=== PATIENT | female | born 1980 | race Caucasian/White ===

== ENCOUNTER → 2018-06-11 09:47 | Outpatient (CLI) | payer OTHER, SELFPAY ==
[2018-06-11 11:10] LABS: Influenza A and B by PCR Rapid Negative (Negative)
== END ==
PROVIDERS: PCP Family Medicine; Visit Provider Physician Assistant
DX: R50.9 Fever, unspecified (principal)
CPT/HCPCS: 87400

== ENCOUNTER → 2018-06-11 10:06 | Outpatient (CLI) | payer OTHER, SELFPAY ==
[2018-06-11 11:18] LABS: Monotest Negative (Negative)
== END ==
PROVIDERS: PCP Family Medicine; Visit Provider Physician Assistant
DX: R50.9 Fever, unspecified (principal)
CPT/HCPCS: 86318; 87400

== ENCOUNTER → 2018-07-10 08:46 | Outpatient (CLI) | payer OTHER, SELFPAY ==
[2018-07-10 10:03] LABS: HCG Quantitative /Beta subunit 265.58 mIU/mL
== END ==
PROVIDERS: PCP Family Medicine; Visit Provider Family Medicine
DX: N91.2 Amenorrhea, unspecified (principal)
CPT/HCPCS: 36415; 84702

== ENCOUNTER → 2018-07-14 08:37 | Outpatient (CLI) | payer OTHER, SELFPAY ==
[2018-07-14 09:50] LABS: HCG Quantitative /Beta subunit 2042.8 mIU/mL
== END ==
PROVIDERS: PCP Family Medicine; Visit Provider Family Medicine
DX: N91.2 Amenorrhea, unspecified (principal)
CPT/HCPCS: 36415; 84702

== ENCOUNTER → 2018-07-28 08:40 | Outpatient (CLI) | payer OTHER, SELFPAY ==
[2018-07-28 10:15] LABS: Add Manual Diff / Slide Review NO; Basophils Percent Auto 0.7 % (0-2); Eosinophils Percent Auto 1.1 % (2-4); Hematocrit 39.8 % (36-46); Hemoglobin 13.4 g/dL (12.0-16.0); Lymphocytes Percent Auto 27.7 % (25-40); Mean Corpuscular HGB Conc 33.6 % (30-36); Mean Corpuscular Volume 92.3 fL (80-100); Monocytes Percent Auto 5.7 % (3-14); Neutrophils Absolute Auto 4600 /uL (3000-5900); Neutrophils Percent Auto 64.8 % (50-75); Platelet Count 288 X10^3/uL (150-400); Red Blood Cell Count 4.31 X10^6/uL (4.0-5.2); Red Cell Distribution Width 13.9 % (11.6-14.8); White Blood Cell Count 7.1 X10^3/uL (4.5-11.0)
[2018-07-28 10:41] LABS: Hepatitis B Surface Antigen NEGATIVE s/c (NEGATIVE); Rubella Antibody IgG 56.6 IU/mL (>15)
[2018-07-28 11:04] LABS: HIV 1 and 2 Antibody NEGATIVE (NEGATIVE); Hep C Virus Ab w/Reflex Quant NEGATIVE s/c (NEGATIVE)
[2018-07-28 11:18] LABS: Appearance Urine UA CLEAR; Bilirubin Urine UA NEGATIVE (NEGATIVE); Color Urine UA YELLOW; Glucose Urine UA NEGATIVE (Normal); Ketones Urine UA NEGATIVE (NEGATIVE); Leukocyte Esterase Urine UA 2+ (NEGATIVE); Nitrite Urine UA NEGATIVE (Negative); Occult Blood Urine UA NEGATIVE (Negative); Protein Urine UA NEGATIVE (Negative); Specific Gravity Urine UA <=1.005 (1.000-1.035); Urobilinogen Urine UA 0.2 E.U./dL (0.2); pH Urine UA 6.5 (4.5-8.0)
[2018-07-28 11:51] LABS: Bacteria Urine None Seen; RBC Urine None Seen (0-5/HPF)
[2018-07-28 12:04] LABS: Squamous Epithelial Cell Urine 1-5 /HPF; WBC Urine 1-5/HPF (0-5/HPF)
[2018-07-29 11:39] LABS: RPR Screen Nonreactive (Nonreactive)
[2018-07-29 14:14] LABS: HSV 2 IGG AB < 0.90 index (< 0.90); HSV1IGG < 0.90 index (< 0.90)
[2018-07-29 14:23] LABS: Varicella IgG Antibody > 4000.00 Index (< 135.00)
== END ==
PROVIDERS: PCP Family Medicine; Visit Provider Family Medicine
DX: Z34.90 Encounter for supervision of normal pregnancy, unspecified, unspecified trimester (principal); Z3A.01 Less than 8 weeks gestation of pregnancy
CPT/HCPCS: 36415; 80055; 81003; 81015; 86695; 86696; 86703; 86787; 86803; 86850; 86900; 86901; 87077; 87086; 87147

== ENCOUNTER → 2018-08-14 16:29 | Outpatient (CLI) | payer OTHER, SELFPAY ==
[2018-08-14 20:37] LABS: Urine N gonorrhoeae NOT DETECTED
[2018-08-14 20:39] LABS: Urine Chlamydia NOT DETECTED
== END ==
PROVIDERS: PCP Family Medicine; Visit Provider Family Medicine
DX: Z11.3 Encounter for screening for infections with a predominantly sexual mode of transmission (principal); Z11.8 Encounter for screening for other infectious and parasitic diseases; Z3A.09 9 weeks gestation of pregnancy
CPT/HCPCS: 87491; 87591

== ENCOUNTER → 2018-08-19 11:34 | Outpatient (CLI) | payer OTHER, SELFPAY ==
[2018-08-25 09:45] LABS: Informaseq SEE SEPARATE REPORTS
== END ==
PROVIDERS: PCP Family Medicine; Visit Provider Family Medicine
DX: O09.521 Supervision of elderly multigravida, first trimester (principal); Z3A.10 10 weeks gestation of pregnancy
CPT/HCPCS: 36415; 81507

== ENCOUNTER → 2018-10-22 07:32 | Outpatient (CLI) | payer OTHER, SELFPAY ==
--- NOTE | 2018-10-22 07:33 | DI.US.S_ITS ---
PROCEDURE: US OB >= 14 WEEKS FETUS INDICATIONS: ANATOMIC SURVEY OUTSIDE/PRIOR DATING DATA: Last menstrual period (LMP): 06/09/18. LMP-based estimated date of delivery (JOLENE): 03/16/19. First dating scan (date and location): 10/22/18. Estimated date of delivery (JOLENE) from first dating scan: 03/14/19. TECHNIQUE: Real-time scanning was performed of the fetus, with image documentation and biometric measurements. Endovaginal scanning: No COMPARISON: [facility], , OB >= 14 WEEKS FETUS, 08/14/2018, 16:27. FINDINGS: General: A single living intrauterine gestation is present. Presentation: Breech. Placenta: Placental position is anterior, without previa. Of note, prominent Gordon Petty contraction visualized within the lower uterine segment. Amniotic fluid index: 11.2 cm, normal range is 5-24 cm. heart rate: 137 beats per minute. Maternal cervical canal: 4.8 cm long. Normal lower limit is 2.5 cm. biometrics: Biparietal diameter: 18 weeks 6 days Head circumference: 19 weeks 3 days Abdominal circumference: 20 weeks 1 day Femur length: 19 weeks 5 days Estimated gestational age from initial scan: 19 weeks 2 days Composite gestational age from present scan: 19 weeks 4 days Estimated weight and percentile: 318 g; 79 percentile Measurement variability for biometric dating: +/- 7 days from 14 weeks to 15 weeks 6 days gestation, +/- 10 days from 16 weeks to 21 weeks 6 days gestation, +/- 2 weeks from 22 weeks to 27 weeks 6 days gestation, +/- 3 weeks for 28 weeks gestation or later. weight reference: 4500 g or EFW >90/95% is considered macrosomia or large for gestational age. EFW <10% is small for gestational age. EFW 5% or less is considered intra-uterine growth restriction. Anatomic survey: Neuro: Ventricles are non-dilated at less than 10 mm. Cisterna magna is normal at 3-11 mm. Cerebellum is normal in size and morphology. Nuchal skin fold: Normal at less than 6 mm between 14-21 weeks gestational age. Face: Nose and lips, facial profile are normal. Spine: No evidence for spina bifida. Heart: 4-chambered heart is present, with normal ventricular outflow tracts. Diaphragm: Diaphragm is intact. Stomach: Left-sided stomach is present. Kidneys: No hydronephrosis. Normal is less than 5 mm in 2nd trimester, less than 7 mm in 3rd trimester. Cord: 3-vessel cord has orthotopic insertion. Bladder: Normal in size. Extremities: All 4 extremities identified. IMPRESSION: 1. Single living IUP redemonstrated and interval growth is normal. 2. Normal anatomic survey. Dictated by: Niraj Swenson [facility] Interpreted: Skyla De León MD on 10/22/2018 at 11:10 Approved by: Skyla De León MD, PhD on 10/22/2018 at 14:19
== END ==
PROVIDERS: PCP Family Medicine; Visit Provider Family Medicine
DX: Z34.02 Encounter for supervision of normal first pregnancy, second trimester (principal); Z3A.19 19 weeks gestation of pregnancy
CPT/HCPCS: 76811

== ENCOUNTER → 2018-12-01 12:05 | Outpatient (CLI) | payer OTHER, SELFPAY ==
[2018-12-01 13:32] LABS: Hematocrit 37.2 % (36-46); Hemoglobin 12.7 g/dL (12.0-16.0)
[2018-12-01 13:59] LABS: GTT (PREG) 1 Hour PP 50gm Dose 162 mg/dL (76-139)
== END ==
PROVIDERS: PCP Family Medicine; Visit Provider Family Medicine
DX: Z34.82 Encounter for supervision of other normal pregnancy, second trimester (principal); Z3A.25 25 weeks gestation of pregnancy
CPT/HCPCS: 36415; 82950; 85014; 85018

== ENCOUNTER → 2018-12-08 08:49 | Outpatient (CLI) | payer OTHER, SELFPAY ==
[2018-12-08 10:03] LABS: Glucose Fasting 83 mg/dL (70-100)
[2018-12-08 10:38] LABS: Glucose 1 Hour 111 mg/dL (70-170)
[2018-12-08 12:11] LABS: Glucose Tol Interpretation INTERPRETATION
[2018-12-08 13:22] LABS: Glucose 2 Hour 66 mg/dL (70-140)
[2018-12-08 13:50] LABS: Glucose 3 Hour 43 mg/dL (70-115)
== END ==
PROVIDERS: PCP Family Medicine; Visit Provider Family Medicine
DX: O99.810 Abnormal glucose complicating pregnancy (principal)
CPT/HCPCS: 36415; 82951; 82952

== ENCOUNTER → 2019-02-10 14:10 | Outpatient (CLI) | payer OTHER, SELFPAY ==
[2019-02-11 12:49] LABS: Strep Grp B PCR NEG for Grp B Strep
== END ==
PROVIDERS: PCP Family Medicine; Visit Provider Family Medicine
DX: A49.1 Streptococcal infection, unspecified site (principal)
CPT/HCPCS: 87653

== ENCOUNTER 2019-03-09 11:25 | Inpatient (IN) | payer OTHER, SELFPAY ==
[2019-03-09] VITALS (8 sets, daily range): BP systolic 121–133; BP diastolic 64–91; PULSE 72–83; RESP 11–14; TEMP 35.8–36.9; O2SAT 98–100
--- NOTE | 2019-03-09 12:47 | PM.HP.1 ---
History of Present Illness Date Patient Seen: 03/09/19 Time Patient Seen: 12:47 Chief complaint: [id number] Narrative: 38-year-old G6 para 1 estimated due date of 03/16/2019 consistent with LMP early ultrasound as well as 20 week ultrasound. Patient had good follow-up during her . Stabs care at 9 weeks. Had 12 visits. Had a weight gain of approximately 30 lb. Patient's care was complicated by previous history of multiple abortions advanced maternal age and previous history of . She did well throughout her had normal blood pressures. She has had some intermittent contractions and mild low back pain. She has not recently had any problems with fevers or chills some mild nausea no leaking of fluid no bleeding she has had good activity. Patient's blood work shows blood type O positive antibody screen negative hematocrit 39.8 VDRL nonreactive hepatitis-B surface antigen negative HIV negative chlamydia negative gonorrhea negative rubella immune varicella immune cell free DNA shows baby boy. 20 week ultrasound no anatomical abnormalities. Elevated diabetes screen at 162 but normal 3 hour glucose challenge screen and GBS test is normal. Past medical history he family history of diabetes blood pressure allergies. Past surgical history D&C. Patient denies any significant allergies Patient History Family & Social History Tobacco & Substance use: Smoking Status Former smoker alcohol intake current Meds Home Medications Medication Instructions Recorded Confirmed Type 1 tab PO DAILY 01/07/19 01/20/19 History vitamin,calcium,wcvqbnaz-mgzx-fzghs acid tablet Allergies Allergy/AdvReac Type Severity Reaction Status Date / Time No Known Drug Allergies Allergy Verified 03/09/19 11:48 Exam Narrative Exam Narrative: General: Alert no apparent distress. Affect is appropriate. Padmini it is uncomfortable. HEENT: Neck is supple without lymphadenopathy pupils equal round and reactive. Cardio: S1-S2 regular rate and rhythm. Respiratory: Lungs clear to auscultation. Abdomen: Gravid. Extremities: Normal deep tendon reflexes trace edema. [place]/ heart tones: heart tones category 1 no contractions Assessment & Plan Assessment & Plan narrative: 38-year-old female G6 para 1 at 39 weeks gestational age here today for repeat section. risk factors include history of multiple miscarriages previous and advanced maternal age. procedure was reviewed in detail with and today. orders were written for. Risks benefits and common complications of were reviewed. Patient would be okay to receive a blood transfusion if needed. Patient will be given antibiotics for incision. Patient will have a CBC platelet count Adams catheter and SCDs placed. She has been NPO since last night.
--- NOTE | 2019-03-09 12:54 | P.HP_ITS ---
History of Present Illness Date Patient Seen: 03/09/19 Time Patient Seen: 12:47 Chief complaint: [id number] Narrative: 38-year-old G6 para 1 estimated due date of 03/16/2019 consistent with LMP early ultrasound as well as 20 week ultrasound. Patient had good follow-up during her . Stabs care at 9 weeks. Had 12 visits. Had a weight gain of approximately 30 lb. Patient's care was complicated by previous history of multiple abortions advanced maternal age and previous his tory of . She did well throughout her had normal blood pressures. She has had some intermittent contractions and mild low back pain. She has not recently had any problems with fevers or chills some mild nausea no leaking of fluid no bleeding she has had good activity. Patient's blood work shows blood type O positive antibody screen negative hematocrit 39.8 VDRL nonreactive hepatitis-B surface antigen negative HIV negative chlamydia negative gonorrhea negative rubella immune varicella immune cell free DNA shows baby boy. 20 week ultrasound no anatomical abnorm alities. Elevated diabetes screen at 162 but normal 3 hour glucose challenge screen and GBS test is normal. Past medical history he family history of diabetes blood pressure allergies. Past surgical history D&C. Patient denies any significant allergies Patient History Family & Social History Tobacco & Substance use: Smoking Status Former smoker alcohol intake current Meds Home Medications Medication Instructions Recorded Confirmed Type 1 tab PO DAILY 01/07/19 01/20/19 History vitamin,calcium,orqwreac-drzm-tivyl acid tablet Allergies Allergy/AdvReac Type Severity Reaction Status Date / Time No Known Drug Allergies Allergy Verified 03/09/19 11:48 Exam Narrative Exam Narrative: General: Alert no apparent distress. Affect is appropriate. Padmini it is uncomfortable. HEENT: Neck is supple without lymphadenopathy pupils equal round and reactive. Cardio: S1-S2 regular rate and rhythm. Respiratory: Lungs clear to auscultation. Abdomen: Gravid. Extremities: Normal deep tendon reflexes trace edema. [place]/ heart tones: heart tones category 1 no contractions Assessment & Plan Assessment & Plan narrative: 38-year-old female G6 para 1 at 39 weeks gestational age here today for repeat section. risk factors include history of multiple miscarriages previous and advanced maternal age. procedure was reviewed in detail with and today. orders were written for. Risks benefits and common complications of were reviewed. Patient would be okay to receive a blood transfusion if needed. Patient will be given antibiotics for incision. Patient will have a CBC platelet count Adams catheter and SCDs placed. She has been NPO since last night.
[2019-03-09 13:19] LABS: Add Manual Diff / Slide Review NO; Basophils Absolute Auto 100 /uL (0-100); Basophils Percent Auto 0.7 % (0-2); Eosinophils Absolute Auto 0 /uL (0-450); Eosinophils Percent Auto 0.4 % (2-4); Hematocrit 42.1 % (36-46); Hemoglobin 14.3 g/dL (12.0-16.0); Lymphocytes Absolute Auto 2600 /uL (1100-4500); Lymphocytes Percent Auto 31.4 % (25-40); Mean Corpuscular HGB Conc 33.9 % (30-36); Mean Corpuscular Hemoglobin 31.5 PG (26-34); Mean Corpuscular Volume 92.7 fL (80-100); Monocytes Absolute Auto 300 /uL (0-900); Monocytes Percent Auto 3.5 % (3-14); Neutrophils Absolute Auto 5400 /uL (1500-7000); Platelet Count 197 X10^3/uL (150-400); Red Blood Cell Count 4.54 X10^6/uL (4.0-5.2); Red Cell Distribution Width 13.5 % (11.6-14.8); White Blood Cell Count 8.4 X10^3/uL (4.5-11.0)
--- NOTE | 2019-03-09 14:04 | SUR.OPER ---
Supine on Padded OR bed, head on pillow, safety belt at thigh, arms secured on padded arm boards at <90 degrees abduction. Bump under right buttock. Legs uncrossed with pillow under knees, gel pad to heels, tape over blanket to lower legs.
--- NOTE | 2019-03-09 14:10 | SUR.OPER ---
Viable male delivered at 1357. Cord Blood and Placenta sent with L&D nurse.
[2019-03-09] MEDS: CEFAZOLIN 2 GM/100 ML FROZ.PIGGY IV (14:13)
--- NOTE | 2019-03-09 14:57 | SUR.PHASEI ---
Report called to [facility]
--- NOTE | 2019-03-09 15:09 | P.PCN_ITS ---
Procedures Date/Time Date of procedure: 03/09/19 Time of procedure: 15:08 General Procedure description: Procedure: Lower segment transverse section Consent: Verbal and written informed consent were obtained from the patient placed on the chart. Indications: 38-year-old G6 now para 2 at 39 weeks gestational age for repeat section Findings: Normal uterus normal ovaries Normal male infant Anesthesia: Spinal Surgeon: Dr. Aroldo Parrish [employer] Truck Driver: Dr. Loc Lemus Estimated blood loss: 500 mL Drains: Adams to gravity. IV fluids: 1900 cc Description of procedure: The patient was brought to the operating room after her spinal epidural, preparation, and Adams had been performed. The abdomen was prepped and draped in tested for for analgesia. When it was found to be adequate, a lower abdominal Pfannenstiel incision was made with first with a knife and cared down to the fascia with a second knife. The fascia was incised in the midline and extended laterally with a knife. Bleeding points were clamped with hemostats and Bovie coagulated. The rectus muscles were by blunt dissection. The rectus muscles were divided in the midline and the peritoneum was grasped with hemostats and carefully entered with Gorman scissors. The incision was extended bilaterally. The bladder blade was then placed. The vesicoperitoneum was grasped with smooth pickups, entered with Metzenbaum scissors, and extended laterally. The bladder flap was created by gently blunt dissection and placed behind the bladder blade. The lower uterine segment was noted to be thin was carefully incised with the scalpel and extended laterally with the fingers. A live was found to be in the vertex position. The head was then easily elevated with the hand. The baby was then suctioned and cried immediately, an d was handed to the waiting attendant. The placenta was delivered manually. The uterus was explored with a wet lap sponge and found to be clear membranes. The first layer of the uterine closure was with running locking #1 chromic catgut suture. The second layer with an imbricating #1 chromic catgut suture. Hemostasis was carefully checked and found to be satisfactory. The bladder flap was closed with a running 2-0 chromic catgut suture. The fallopian tubes and ovaries were inspected and to be found normal bilaterally. After sponge and needle counts were found to be correct the peritoneum was closed with 2-0 chromic catgut suture. Rectus muscles were approximated in the lower midline. The fascia was closed with a 2 running 0 Vicryl from lateral to midline. The subcutaneous tissue was approximated with interrupted 2.0 plain gut. Bleeding points were Bovie and coagulated. The subcutaneous tissue was approximated with 20 plain gut suture. The skin was closed with 1-0 running subcuticular stitch. Urinary output was adequate and normal patient left to the recovery room in good condition.
[2019-03-09] MEDS: DEXTROSE 5%-LACTATED RINGERS 1,000 ML 100 ML IV ×2 (15:20→22:55)
--- NOTE | 2019-03-09 15:23 | SUR.PHASEI ---
Pt tranferred to the center. VS stable. IV patent. Fundus and araceli-pad checked with RN. Abd drsg cdi. Spinal level t8-t10. Report to Yun.
[2019-03-09] MEDS: diphenhydrAMINE 50 MG/ML VIAL 25 MG IV ×2 (17:04→22:09)
[2019-03-09] MEDS: HYDROCODONE/ACET 5/325 TABLET 1 TAB PO (18:51)
[2019-03-09] MEDS: KETOROLAC 30 MG/ML VIAL IV (21:31)
[2019-03-09] MEDS: ONDANSETRON 4 MG/2 ML INJ IV (21:38)
[2019-03-10] MEDS: KETOROLAC 30 MG/ML VIAL IV ×2 (03:59→10:42)
[2019-03-10 07:06] LABS: Add Manual Diff / Slide Review NO; Basophils Absolute Auto 0 /uL (0-100); Basophils Percent Auto 0.3 % (0-2); Eosinophils Absolute Auto 100 /uL (0-450); Eosinophils Percent Auto 0.9 % (2-4); Hematocrit 33.9 % (36-46); Hemoglobin 11.3 g/dL (12.0-16.0); Lymphocytes Absolute Auto 2000 /uL (1100-4500); Lymphocytes Percent Auto 24.9 % (25-40); Mean Corpuscular HGB Conc 33.3 % (30-36); Mean Corpuscular Hemoglobin 30.9 PG (26-34); Mean Corpuscular Volume 92.7 fL (80-100); Monocytes Absolute Auto 500 /uL (0-900); Monocytes Percent Auto 6.5 % (3-14); Neutrophils Absolute Auto 5400 /uL (1500-7000); Neutrophils Percent Auto 67.4 % (50-75); Platelet Count 151 X10^3/uL (150-400); Red Blood Cell Count 3.66 X10^6/uL (4.0-5.2); Red Cell Distribution Width 13.3 % (11.6-14.8)
[2019-03-10] MEDS: HYDROCODONE/ACET 5/325 TABLET 1 TAB PO (08:06)
--- NOTE | 2019-03-10 08:14 | PM.PN.1 ---
Subjective Date Patient Seen: 03/10/19 Time Patient Seen: 08:15 Interval history: Patient seen and evaluation day 1. Status post repeat . Did well overnight had some itching nausea few episodes of vomiting not really tolerating orals yet. Still has IV fluids going. She says she feels hungry this morning. Vaginal bleeding is been stable. Vital signs are stable. Pain has been well controlled. Feeling comfortable with breast-feeding and baby is latching okay. Pain is 2/10. Has not really received anything for pain management yet. Exam Vital Signs (past 8 hours): Oxygen Delivery Method Room Air Narrative Exam Narrative: General: Alert no apparent distress. Affect is appropriate. Padmini it is uncomfortable. HEENT: Neck is supple without lymphadenopathy pupils equal round and reactive. Cardio: S1-S2 regular rate and rhythm. Respiratory: Lungs clear to auscultation. Abdomen: Uterus firm. Incision clean dry and intact. Extremities: Normal deep tendon reflexes trace edema. Objective Labs Result Diagrams: 03/10/19 05:00 Labs: Laboratory Results - last 24 hr 03/09/19 03/09/19 03/10/19 12:20 12:20 05:00 WBC 8.4 8.0 RBC 4.54 3.66 L Hgb 14.3 11.3 L Hct 42.1 33.9 L MCV 92.7 92.7 MCH 31.5 30.9 MCHC 33.9 33.3 RDW 13.5 13.3 Plt Count 197 151 Neut % (Auto) 64.0 67.4 Lymph % (Auto) 31.4 24.9 L [place] % (Auto) 3.5 6.5 Eos % (Auto) 0.4 L 0.9 L Baso % (Auto) 0.7 0.3 Neut # (Auto) 5400 5400 Lymph # (Auto) 2600 2000 [place] # (Auto) 300 500 Eos # (Auto) 0 100 Baso # (Auto) 100 0 Blood Type O Positive Antibody Screen Negative Assessment & Plan Assessment & Plan narrative: day 1. Status post repeat section patient is doing well today. DC Adams catheter IDC SCDs at a bed and ambulate advance diet. Will stop IV fluids as she starts to tolerate orals. Her pain has been well controlled. Transition to oral pain medication. Bleeding is normal and uterus is firm. Continue with routine postoperative care. Anticipate discharge tomorrow.
[2019-03-10] MEDS: PRENATAL VIT,CALC/IRON/FOLIC 1 TABLET 1 TAB PO (08:53)
[2019-03-10] MEDS: IBUPROFEN 600 MG TABLET PO (16:49)
[2019-03-10] MEDS: HYDROCODONE/ACET 5/325 TABLET 2 TAB PO (16:50)
[2019-03-10 17:21] VITALS: BP 125/82; PULSE 86; RESP 18; TEMP 37.4
--- NOTE | 2019-03-11 08:03 | PM.DS.1 ---
History of Present Illness Chief complaint: [id number] Narrative: 38-year-old G6 para 1 estimated due date of 03/16/2019 consistent with LMP early ultrasound as well as 20 week ultrasound. Patient had good follow-up during her . Stabs care at 9 weeks. Had 12 visits. Had a weight gain of approximately 30 lb. Patient's care was complicated by previous history of multiple abortions advanced maternal age and previous history of . She did well throughout her had normal blood pressures. She has had some intermittent contractions and mild low back pain. She has not recently had any problems with fevers or chills some mild nausea no leaking of fluid no bleeding she has had good activity. Patient's blood work shows blood type O positive antibody screen negative hematocrit 39.8 VDRL nonreactive hepatitis-B surface antigen negative HIV negative chlamydia negative gonorrhea negative rubella immune varicella immune cell free DNA shows baby boy. 20 week ultrasound no anatomical abnormalities. Elevated diabetes screen at 162 but normal 3 hour glucose challenge screen and GBS test is normal. Past medical history he family history of diabetes blood pressure allergies. Past surgical history D&C. Patient denies any significant allergies Discharge Providers Date of admission: 03/09/19 11:25 Discharge Date: 03/10/19 Primary care physician: Aroldo Parrish MD Consults: 03/09/19 15:24 Consult to Supervisor [employer] Routine Comment: Discharge provider: Aroldo Parrish MD Summary Discharge Diagnosis: Term intrauterine Repeat section Routine postoperative care Hospital Course: Admitted to the hospital for repeat section. Patient had delivery of viable male infant Apgars 8 and 9. Mom had routine postoperative care. Was discharged home. At the time of discharge she is eating ambulating urinating well. Vaginal bleeding was anticipated. Swelling was minimal blood pressure was stable. Pain was well controlled. She was tolerating her diet. Incision was clean dry and intact. Time Spent with Patient Less than 30 minutes Exam Vital Signs (past 8 hours): Oxygen Delivery Method Room Air Narrative Exam Narrative: General: Alert no apparent distress. Affect is appropriate. Padmini it is uncomfortable. HEENT: Neck is supple without lymphadenopathy pupils equal round and reactive. Cardio: S1-S2 regular rate and rhythm. Respiratory: Lungs clear to auscultation. Abdomen: Uterus firm. Incision clean dry and intact. Extremities: Normal deep tendon reflexes trace edema. Objective Labs Result Diagrams: 03/10/19 05:00 Discharge Plan Discharge Plan Patient Disposition: Home Discharge Med Rec/Prescriptions Prescriptions: New hydrocodone-acetaminophen 5-325 mg Tablet 2 tab PO Q4HR PRN (Reason: Pain, Moderate (4-6)) Qty: 30 RF: 0 ibuprofen 600 mg Tablet 600 mg PO Q6HR PRN (Reason: As Needed For Fever/Mild Pain) Qty: 30 RF: 0 docusate sodium [Colace] 100 mg capsule 100 mg PO BID PRN (Reason: constipation) Qty: 20 RF: 0 Continued prenat.vits,val,rvp-rsyv-tjjhf tablet 1 tab PO DAILY RF: 0 Follow up/Referrals: Aroldo Parrish MD [Primary Care Provider] - (Please follow up with Dr. Parrish on March 12. Please call to schedule an appointment and for any questions or concerns that you may have.) Visit Report/Discharge Packet Stand Alone Forms: Discharge: Care Visit Report Forms: Stroke Signs & Symptoms Discharge Data Primary Care Provider: Aroldo Parrish Attending Provider: Aroldo Parrish Admit Date/Time: 03/09/19 11:25
== END 2019-03-10 19:05 | disposition home or self-care (01) | DRG 788 ==
PROVIDERS: Admitting Provider Family Medicine; PCP Family Medicine; Visit Provider Family Medicine
PROC: 10D00Z1 Extraction of Products of Conception, Low, Open Approach (ICD-10-PCS; CPT 59514; principal; 2019-03-09 13:30)
DX: O34.219 Maternal care for unspecified type scar from previous cesarean delivery (principal); Z3A.39 39 weeks gestation of pregnancy; Z37.0 Single live birth
CPT/HCPCS: 36415; 59050; 59510; 59514; 85025; 86850; 86900; 86901; J0690; J1200; J1885; J2274; J2405; J2590; J7121

== ENCOUNTER → 2020-03-22 11:31 | Outpatient (CLI) | payer OTHER, SELFPAY ==
--- NOTE | 2020-03-22 11:32 | DI.US.S_ITS ---
PROCEDURE: US PELVIC COMPLETE INDICATIONS: VAGINAL BLEEDING TECHNIQUE: Real-time scanning was performed of the pelvic organs, with image documentation. Additional endovaginal scanning was necessary due to incomplete visualization of the adnexal and endometrial structures by transabdominal scanning. COMPARISON: [facility], , PELVIC COMPLETE, 11/11/2017, 10:32. FINDINGS: Transabdominal scanning: A mild amount of free pelvic fluid is seen, which is considered to be within physiologic limits. Limited scanning through the kidneys shows no hydronephrosis. Endovaginal scanning: Uterus: Uterus is normal in size at 7.6 x 4.9 x 4.5 cm. The endometrium measures 5 mm in combined thickness. No abnormal vascularity can be seen along the endometrial stripe. Ovaries: The right ovary measures 2.8 x 2.8 x 2.1 cm. The left ovary measures 3.5 x 1.6 x 1.8 cm. The ovaries have a normal sonographic appearance, with multiple cystic follicles seen. No adnexal masses are seen. IMPRESSION: Normal-appearing endometrial stripe, without abnormal vascularity. No imaging explanation is found for this patient's presenting symptoms. Dictated by: Garrison Lancaster M.D. on 03/22/2020 at 12:25 Approved by: Garrison Lancaster M.D. on 03/22/2020 at 12:26
[2020-03-22 12:14] LABS: Add Manual Diff / Slide Review NO; Basophils Absolute Auto 100 /uL (0-100); Basophils Percent Auto 0.9 % (0-2); Eosinophils Absolute Auto 100 /uL (0-450); Eosinophils Percent Auto 1.2 % (2-4); Hematocrit 36.6 % (36-46); Hemoglobin 12.5 g/dL (12.0-16.0); Lymphocytes Absolute Auto 2000 /uL (1100-4500); Lymphocytes Percent Auto 34.2 % (25-40); Mean Corpuscular HGB Conc 34.2 % (30-36); Mean Corpuscular Hemoglobin 31.8 PG (26-34); Mean Corpuscular Volume 92.8 fL (80-100); Monocytes Absolute Auto 300 /uL (0-900); Monocytes Percent Auto 4.6 % (3-14); Neutrophils Absolute Auto 3500 /uL (1500-7000); Neutrophils Percent Auto 59.1 % (50-75); Platelet Count 297 X10^3/uL (150-400); Red Blood Cell Count 3.94 X10^6/uL (4.0-5.2)
[2020-03-22 13:14] LABS: TSH w/ Reflex to FT4 1.83 uIU/mL (0.47-4.68)
== END ==
PROVIDERS: PCP Family Medicine; Referring Provider Family Medicine; Visit Provider Family Medicine
DX: N93.9 Abnormal uterine and vaginal bleeding, unspecified (principal)
CPT/HCPCS: 36415; 76830; 76856; 84443; 85025

== ENCOUNTER → 2021-06-14 09:45 | Outpatient (CLI) | payer OTHER, SELFPAY ==
[2021-06-14 11:23] LABS: Add Manual Diff / Slide Review NO; Basophils Absolute Auto 100 /uL (0-100); Basophils Percent Auto 0.7 % (0-2); Eosinophils Absolute Auto 100 /uL (0-450); Eosinophils Percent Auto 1.9 % (2-4); Hematocrit 38.8 % (36-46); Hemoglobin 12.6 g/dL (12.0-16.0); Lymphocytes Absolute Auto 2400 /uL (1100-4500); Lymphocytes Percent Auto 33.8 % (25-40); Mean Corpuscular HGB Conc 32.4 % (30-36); Mean Corpuscular Volume 92.6 fL (80-100); Monocytes Absolute Auto 400 /uL (0-900); Monocytes Percent Auto 6.1 % (3-14); Neutrophils Absolute Auto 4000 /uL (1500-7000); Neutrophils Percent Auto 57.5 % (50-75); Platelet Count 269 X10^3/uL (150-400); Red Blood Cell Count 4.18 X10^6/uL (4.0-5.2)
[2021-06-14 11:50] LABS: Alanine Aminotransferase 17 IU/L (<35); Albumin 4.2 g/dL (3.5-5.0); Albumin Globulin Ratio 1.4 (1.0-2.8); Alkaline Phosphatase 51 U/L (38-126); Aspartate Aminotransferase 27 IU/L (14-36); BUN Creatinine Ratio 18.9 (6-22); Bilirubin Total 0.6 mg/dL (0.2-1.3); Blood Urea Nitrogen 10 mg/dL (7-17); Calcium 9.3 mg/dL (8.4-10.2); Carbon Dioxide 27 mmol/L (22-32); Chloride 103 mmol/L (98-107); Estimated Glomerular Filt Rate > 60.0 mL/min (>60); Globulin 3.1 g/dL (1.7-4.1); Glucose 96 mg/dL (70-100); HEMOLYSIS < 15 (0-50); Potassium 3.8 mmol/L (3.4-5.1); Sodium 136 mmol/L (137-145); Total Protein 7.3 g/dL (6.3-8.2)
[2021-06-14 12:05] LABS: Thyroid Stimulating Hormone 1.58 uIU/mL (0.47-4.68)
[2021-06-14 12:38] LABS: Vitamin B12 393 pg/mL (239-931)
== END ==
PROVIDERS: PCP Family Medicine; Referring Provider Family Medicine; Visit Provider Family Medicine
DX: R53.83 Other fatigue (principal); F41.1 Generalized anxiety disorder
CPT/HCPCS: 36415; 80053; 82607; 84443; 85025

== ENCOUNTER 2021-12-30 15:42 | Emergency (ER) | payer OTHER, SELFPAY ==
[2021-12-30 15:54] VITALS: BP 137/71; PULSE 100; RESP 16; TEMP 36.9; O2SAT 100; BMI 28.3
--- NOTE | 2021-12-30 15:57 | DI.RAD.S_ITS ---
PROCEDURE: XR ANKLE LT MIN 3V INDICATIONS: [place], pain and swelling TECHNIQUE: 3 views of the ankle were acquired. COMPARISON: None. FINDINGS: Bones: No fractures or dislocations. Ankle mortise is normally aligned. No suspicious bony lesions. The talar dome demonstrates no chris abnormality. Incidental note is made of an enthesophyte at the Achilles insertion. Soft tissues: Soft tissue swelling is seen laterally. IMPRESSION: Soft tissue swelling is seen, without an acute bony abnormality seen by plain film. If there is point tenderness (or other clinical suspicion for a fracture not seen on these images) then a dedicated CT or a short-term followup plain film series could be considered for further evaluation, as clinically appropriate. Dictated by: Garrison Lancaster M.D. on 12/30/2021 at 15:32 Approved by: Garrison Lancaster M.D. on 12/30/2021 at 15:33
[2021-12-30] MEDS: ACETAMINOPHEN 325 MG TABLET 975 MG PO (16:45)
[2021-12-30] MEDS: TRAMADOL 50 MG TABLET PO (17:15)
--- NOTE | 2021-12-30 18:07 | ED.LOWEXIN ---
HPI - Extremity Injury (Lower) <MAIDA Lenz - Last Filed: 12/30/21 18:16> General Chief Complaint: Extremity Injury, Lower Stated Complaint: hurt left leg/can't feel it Time Seen by Provider: 12/30/21 16:36 History of Present Illness HPI Narrative: 41-year-old female presents to the emergency department with left ankle pain after she was at a trampoline gym and she states that she stepped off the trampoline and her left foot rolled inward, causing lateral pain on her left ankle. She denies any previous injury of this ankle, denies any knee pain, states that it is painful on heel aspect when she tries to bear weight, she has swelling along the lateral aspect, dorsiflexion and extension intact, patient states that she has sensation in her toes and this has not changed, she has been icing it since she arrived at the emergency department. Patient states that she is concerned she is going to [employer] next week. Patient is not any blood thinners, denies any weakness in her lower extremity. Denies any open wound. Related Data Previous Rx's Medication Instructions Recorded guanfacine 1 mg tablet 1 mg PO DAILY #30 tab 12/26/21 diclofenac sodium 1 % topical gel 4 g TOPICAL QID #100 g 12/30/21 tramadol 50 mg tablet 50 mg PO DAILY PRN #14 tab 12/30/21 Allergies Allergy/AdvReac Type Severity Reaction Status Date / Time No Known Drug Allergies Allergy Verified 08/24/21 14:49 Review of Systems <MAIDA Lenz - Last Filed: 12/30/21 18:16> Review of Systems Narrative: General: denies fever, chills Head/Neck: denies headache, neck pain Eyes: denies visual changes, eye pain Cardio: denies chest pain, palpitations Respiratory: denies shortness of breath, cough GI: denies abdominal pain, nausea, vomiting, or diarrhea : denies dysuria, hematuria MSK: Endorses left ankle pain mostly along the lateral aspect and under her heel, denies muscle weakness Skin: denies rash, itching Neuro: denies numbness, tingling Patient History <MAIDA Lenz - Last Filed: 12/30/21 18:16> Medical History Acne (1997) Eczema (1982) Surgical History Anesthesia (04/11/15) Status post delivery (11/12/13) Family History Grandmother Cancer Diabetes mellitus Hypertension High cholesterol Breast cancer Bone cancer Grandmother Stroke Brain aneurysm Mother Hypertension Social History marital status: Smoking Status: Former smoker alcohol intake: current substance use type: does not use Smoking Status: Former smoker Exam <MAIDA Lenz - Last Filed: 12/30/21 18:16> Narrative Exam Narrative: Independently reviewed vitals signs and nursing notes. General: cooperative, comfortable, in no acute distress, well developed and well groomed Head: atraumatic, symmetrical facial expressions Neck: supple, atraumatic Eyes: pupils equal round and reactive, EOMI Nose: nares patent, no rhinorrhea Mouth/Throat: uvula midline, moist mucus membranes Cardiovascular: regular rate and rhythm, no peripheral edema, warm extremities Respiratory: normal effort, able to speak in complete sentences, no audible wheezing, stridor, or rales. No retractions or tachypnea. GI: abdomen soft, nontender to palpation, nondistended, no masses, no exquisite tenderness with exam, without guarding or rebound. MSK: moves all extremities, neurovascularly intact, no weakness, left ankle with tenderness over ATFL and CFL ligaments, dorsiflexion and extension are intact, inversion eversion also intact, limited only due to pain, cap refill less than 2 seconds, PT and DP pulses are 2+, no tenderness over lateral malleolus, no tenderness over medial malleolus, no midfoot pain, no plantar ecchymosis, no open wound. Patient has a moderate amount of swelling along the lateral aspect of her lateral malleolus Skin: brisk capillary refill, no rash, no erythema Neuro: normal speech and cognition, A&O x3, normal tone Psych: mental status is grossly normal, congruent mood, normal affect, pleasant and cooperative Initial Vital Signs Initial Vital Signs: Vital Signs Temperature 98.4 F 12/30/21 15:54 Pulse Rate 100 H 12/30/21 15:54 Respiratory Rate 16 12/30/21 15:54 Blood Pressure 137/71 12/30/21 15:54 Pulse Oximetry 100 12/30/21 15:54 Procedures <MAIDA Lenz - Last Filed: 12/30/21 18:16> Orthopedic Splinting/Casting Injury #1: Lower Extremity Injury Location: ankle Lower Extremity Immobilizer: boot orthosis Other Orthopedic Equipment: crutches Post splinting neuro exam: intact Post splinting vascular exam: intact Placed by: Nursing Course <MAIDA Lenz - Last Filed: 12/30/21 18:16> Orders Ordered: ED Orders 12/30/21 15:57 XR ankle LT min 3V Stat Discontinued Medications Acetaminophen (Acetaminophen 325 Mg Tablet) 975 mg PO NOW ONE Stop: 12/30/21 16:34 Last Admin: 12/30/21 16:45 Dose: 975 mg Documented by: DARLING Ibuprofen (Ibuprofen 400 Mg Tablet) 800 mg PO NOW ONE Stop: 12/30/21 16:34 Last Admin: 12/30/21 16:45 Dose: Not Given Documented by: DARLING Tramadol HCl (Tramadol 50 Mg Tablet) 50 mg PO NOW ONE Stop: 12/30/21 17:07 Last Admin: 12/30/21 17:15 Dose: 50 mg Documented by: HANDY Vital Signs Vital signs: Vital Signs - 8 hr 12/30/21 15:54 Temperature 98.4 F Pulse Rate 100 H Respiratory Rate 16 Blood Pressure 137/71 Pulse Oximetry 100 MDM - Extremity Injury (Lower) <MAIDA Lenz - Last Filed: 12/30/21 18:16> Imaging Data Extremity x-ray #1: Radiologist's Impression: PROCEDURE:? XR ANKLE LT MIN 3V ? INDICATIONS:? [place], pain and swelling ? TECHNIQUE:? 3 views of the ankle were acquired.? ? COMPARISON:? None. ? FINDINGS:? ? Bones:? No fractures or dislocations.? Ankle mortise is normally aligned.? No suspicious bony lesions.? The talar dome demonstrates no chris abnormality.? Incidental note is made of an enthesophyte at the Achilles insertion. ? Soft tissues:? Soft tissue swelling is seen laterally. ? ? IMPRESSION:? Soft tissue swelling is seen, without an acute bony abnormality seen by plain film. ? If there is point tenderness (or other clinical suspicion for a fracture not seen on these images) then a dedicated CT or a short-term followup plain film series could be considered for further evaluation, as clinically appropriate. ? Dictated by: Garrison Lancaster M.D. on 12/30/2021 at 15:32 ? ? Approved by: Garrison Lancaster M.D. on 12/30/2021 at 15:33 ? MDM Narrative Medical decision making narrative: This is a pleasant 41-year-old female who presents to the emergency department after she was at the [employer] with her children, she states she stepped off the [employer], and rolled her left ankle inward causing lateral pain in her ankle. She complains of pain on the plantar aspect of her heel, she has tenderness over her ATFL and CFL ligaments, dorsiflexion and extension are intact, no tenderness over medial or lateral malleoli, she was able to weight bear in a walking boot with crutches. Patient states that she has that trip to [employer] next week, encouraged her to ice as much as possible, elevate all week, take ibuprofen, keep it in a walking boot, and use crutches to ambulate as much as possible to help this heal quickly. She was given a prescription for diclofenac gel, and tramadol as needed for her pain. She was able to ambulate without bearing weight in using crutches and tolerated this well. She was given a referral to Orthopedics to follow up with them if she is not improving as expected. She was fitted in a walking boot and given crutches, these helped her feel more stable. Patient is appropriate and amenable to discharge home. Vital signs are stable on repeat examination is unremarkable. Patient has been informed of results. Patient has been given strict return to ER precautions for any new or worsening symptoms. Patient understands to follow up closely with outpatient providers as instructed. Patient understands plan and agrees to discharge home. All questions and concerns answered at this time. Discharge Plan Departure Patient Disposition: Home Clinical Impression: Ankle sprain Qualifiers: Encounter type: initial encounter Involved ligament of ankle: unspecified ligament Laterality: left Qualified Code(s): S93.402A - Sprain of unspecified ligament of left ankle, initial encounter Instructions: Ankle Sprain Activity Restrictions/Additional Instructions: *You have been diagnosed with a fairly significant left ankle sprain. You have tenderness over your ATFL and CFL ligaments. Please keep it immobilized, follow-up with orthopedics in 1 week, or after the return from her trip. Try to use crutches for most of her getting around, you may bear weight if it is tolerated well without significant pain. Please ice this like crazy over the next few days, keep it elevated as much as possible, take ibuprofen every 6 hours with food, you can use diclofenac gel, Tylenol as well, and if giving me some tramadol as needed for your pain. Follow-up with your primary care provider for advanced imaging or physical therapy referrals. If this starts to get better after 1-3 weeks, it is most likely a sprain in should finish healing without incident. Any activity can flare this back up if it is not fully healed. I hope it is great for your trip. *What to do: *Please continue to take your regular medications as directed. [x ] New medication prescriptions sent to your pharmacy: [ ] [ ] New medication written as a paper prescription [ ] No new medications given *Please follow up with your primary care provider in 2-3 days, call for an appointment. Let them know you were seen in the Emergency Department and that we asked that you be seen for follow-up. We will electronically transmit a record of today's note if your PCP is in our system *If you do not have a primary care provider please contact [phone] to establish care with one of [facility] primary care providers. *Return to Emergency Department if you should have any new, worsening or concerning symptoms, such as [fever greater than 101F, chills, worsening pain, persistent vomiting or other bothersome symptoms] Prescriptions: New diclofenac sodium 1 % gel 4 g topical QID Qty: 100 0RF Rx Instructions: apply to single knee, ankle, foot; for foot includes sole/toes/top of foot tramadol 50 mg tablet 50 mg PO DAILY PRN (Reason: pain) Qty: 14 0RF No Action guanfacine 1 mg tablet 1 mg PO DAILY Qty: 30 1RF Referrals: [facility] [Provider Group] - 7-10 days Aroldo Parrish MD [Primary Care Provider] -
== END 2021-12-30 17:21 | disposition home or self-care (01) ==
PROVIDERS: Emergency Provider Nurse Practitioner Critical Care Medicine; PCP Family Medicine
DX: S93.402A Sprain of unspecified ligament of left ankle, initial encounter (principal); Z87.891 Personal history of nicotine dependence; X50.1XXA Overexertion from prolonged static or awkward postures, initial encounter; Y93.89 Activity, other specified; Y92.89 Other specified places as the place of occurrence of the external cause
CPT/HCPCS: 73610; 99283; 99284

== ENCOUNTER → 2024-01-14 10:49 | Outpatient (CLI) | payer OTHER, SELFPAY ==
--- NOTE | 2024-01-14 10:52 | DI.RAD.S_ITS ---
PROCEDURE: XR WRIST RT MIN 3V INDICATIONS: Right hand and wrist pain; possible Carpal Tunnel Syndrome TECHNIQUE: 3 views of the wrist were acquired. COMPARISON: None. FINDINGS: Bones: No fractures or dislocations. No suspicious bony lesions. Soft tissues: No suspicious soft tissue calcifications. IMPRESSION: No acute osseous abnormality. If pain persists with conservative management, consider repeat x-ray in 10-14 days or cross-sectional imaging. Dictated by: Jignesh Miller M.D. on 01/14/2024 at 13:38 Approved by: Jignesh Miller M.D. on 01/14/2024 at 13:38
--- NOTE | 2024-01-14 10:52 | DI.RAD.S_ITS ---
PROCEDURE: XR HAND RT MIN 3V INDICATIONS: Right hand and wrist pain; possible Carpal Tunnel Syndrome TECHNIQUE: 3 views of the hand(s) acquired. COMPARISON: None. FINDINGS: Bones: No fractures or dislocations. Carpal bones are normally aligned. No suspicious bony lesions. Soft tissues: No suspicious soft tissue calcifications. IMPRESSION: No acute bony abnormality. Dictated by: Jignesh Miller M.D. on 01/14/2024 at 13:39 Approved by: Jignesh Miller M.D. on 01/14/2024 at 13:39
== END ==
PROVIDERS: PCP Family Medicine; Referring Provider Physician Assistant; Visit Provider Physician Assistant
DX: M25.531 Pain in right wrist (principal); M79.641 Pain in right hand
CPT/HCPCS: 73110; 73130

== ENCOUNTER → 2024-11-05 14:43 | Outpatient (CLI) | payer OTHER, SELFPAY ==
--- NOTE | 2024-11-05 14:44 | DI.ECHO.S_ITS ---
[facility] : : [address] : : [place] : : [id number] : : Phone: [phone] Echocardiogram Report + + :Name: BATSHEVA NG Study Date: 11/05/2024 Height: 66 in : :[facility] ReadingLocation: Weight: 175 lb : : Gender: Female BSA: 1.9 m2 : :: 1980 Age: 44 yrs BP: 130/88 mmHg: :Reason For Study: SYNCOPE : :Ordering Physician: LUCIAN, : :JEFF Performed By: Gita Pa : :Referring: JEFF EPSTEIN : + + Interpretation Summary Normal sinus rhythm. Normal LV size, wall thickness, wall motion and LV systolic function. EF is 60-65%. Normal chamber sizes. No significant valvular abnormalities. 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 Bubble study shows no bubble crossing within 3 beats after full right atrium opacification. There is delayed small number of bubbles in the left atrium most consistent with a small pulmonary avm. No prior echo available for comparison. Procedure: A two-dimensional transthoracic echocardiogram with color flow and Doppler was performed. The study quality was technically good. There is no prior echocardiogram noted for this patient. A saline contrast injection was performed to assess for cardiac shunting. The patient was in sinus rhythm with heart rates between 68-77 bpm during the exam. Left Ventricle: The left ventricle is normal in size and wall thickness. The ejection fraction is estimated to be 60-65%. Right Ventricle: The right ventricle is normal in size and function. Atria: The left atrial size is normal. Right atrial size is normal. The atrial septum is slightly aneurysmal. Injection of contrast documented no interatrial shunt. Mitral Valve: The mitral valve leaflets appear to open well. There is no mitral annular calcification. There is no mitral regurgitation noted. Aortic Valve: The aortic valve is trileaflet. The aortic valve opens well. There is no aortic valve stenosis. No aortic regurgitation is present. Tricuspid Valve: The tricuspid valve leaflets are thin and pliable. There is mild tricuspid regurgitation. The right ventricular systolic pressure is estimated to be at least 30 mmHg based on an estimated right atrial pressure of 8 mm Hg. Pulmonic Valve: The pulmonic valve leaflets are thin and pliable; valve motion is normal. There is no pulmonic valvular regurgitation. Great Vessels: The aortic root is normal size. The dimensions of the ascending aorta are normal. The IVC is dilated (diameter is greater than 2.1 cm) yet it collapses greater than 50% with a sniff. This suggests a right atrial pressure of 8 mm Hg. Pericardium/ Pleura There is no pericardial effusion. There is no pleural effusion. MMode/2D Measurements & Calculations LVIDd: 4.4 cm LVOT diam: 2.1 cm LVIDs: 2.9 cm Ao root diam: 2.8 cm FS: 34.2 % asc Aorta Diam: 3.4 cm EPSS: 0.55 cm Ao Arch Diam (Prox Trans): 2.9 cm IVSd: 0.95 cm LVPWd: 0.67 cm LV butler. diameter/BSA (cm/m^2): 2.4 LV sys. diameter/BSA (cm/m^2): 1.5 LA dimension: 3.7 cm RA long axis: 5.2 cm LA A2 area: 18.6 cm2 RA area: 16.1 cm2 LA A4 area: 20.8 cm2 RA vol: 42.7 ml LA length (vol): 5.7 cm RA : 22.6 ml/m2 LA vol: 57.1 ml IVC diam: 2.4 cm LA vol index: 30.2 ml/m2 RVD1 (basal): 3.4 cm RVD2 (mid): 2.6 cm TAPSE: 2.6 cm Doppler Measurements & Calculations Ao V2 max: 151.0 cm/sec LVOT Max Rafa: 126.6 cm/sec Ao V2 mean: 106.2 cm/sec LV V1 max P.4 mmHg Ao max P.1 mmHg LV V1 VTI: 29.3 cm Ao mean P.0 mmHg PROSPER(I,D): 3.1 cm2 Ao V2 VTI: 32.8 cm PROSPER(V,D): 2.9 cm2 sev ratio: 0.90 PROSPER indexed to BSA (cm^2/m^2): 1.6 MV E max rafa: 114.3 cm/sec TR max rafa: 234.3 cm/sec MV A max rafa: 65.6 cm/sec TR max P.0 mmHg MV E/A: 1.7 PA V2 max: 108.1 cm/sec Med Peak E' Rafa: 10.6 cm/sec PA V2 mean: 77.4 cm/sec E/E' med: 10.8 PA mean P.6 mmHg Lat Peak E' Rafa: 14.5 cm/sec PA pr(Accel): 20.8 mmHg E/E' lat: 7.9 E/e' average: 9.4 MV dec time: 0.18 sec MVA(VTI): 3.4 cm2 MV V2 mean: 67.5 cm/sec SV(LVOT): 101.6 ml MV mean P.2 mmHg MV V2 VTI: 29.6 cm Electronically signed by: Pamela Shepherd M.D. on Reading Physician:11/06/2024 02:38 AM
== END ==
PROVIDERS: PCP Family Medicine; Referring Provider Internal Medicine Cardiovascular Disease; Visit Provider Internal Medicine Cardiovascular Disease
DX: R55 Syncope and collapse (principal); I07.1 Rheumatic tricuspid insufficiency
CPT/HCPCS: 93306